=== PATIENT | male | born 1980 | race Caucasian/White ===

== ENCOUNTER 2017-06-11 13:21 | Inpatient (IN) | payer OTHER ==
[~2017-06-11] VITALS: Ht 185.4 cm; Wt 104.2 kg
[~2017-06-11 13:21] MED LIST: AMLODIPINE BESYL5 MG PO; BAL B-1001 EACH PO; COMPAZINE10 MG PO; COREG6.25 M1 PO; CYCLOBENZAPRINE10 MG PO; GABAPENTIN PO; GABAPENTIN300 MG PO; GRALISE600 MG PO; LEVO-T125 MCG PO; LEVO-T150 MCG PO; LISINOPRIL20 MG PO; LISINOPRIL40 MG PO; LOPERAMIDE2 MG PO; LORTAB 10-3251 EACH PO; LYRICA100 MG PO; LYRICA150 MG PO; METOPROLOL SUC100 MG PO; METOPROLOL TAR100 MG PO; METRONIDAZOLE500 MG PO; OXAYDO5 MG PO; PERI-COLACE TA1 EACH PO; PREDNISONE5 MG PO; Protonix PO; TRAZODONE HCL50 MG PO; VITAMIN B-1001 EAC1 PO; VITAMIN B-6250 MG PO
[2017-06-11 14:58] LABS: HEMATOCRIT 41.1 % (38.0-50.0); MCH 28.4 PG (29.0-34.0); MCHC 32.1 G/DL (30.0-36.0); MCV 88.6 FL (86-99); PLATELET COUNT 194 K/uL (156-360); RBC DIS.WIDTH-CV 19.6 % (11.8-14.6); RBC DIS.WIDTH-SD 59.5 % (39-53); RED BLOOD COUNT 4.64 M/uL (4.00-5.50); WHITE BLOOD COUNT 5.9 K/uL (4.1-10.2)
[2017-06-11 15:05] LABS: CHLORIDE 105 mEq/L (99-109); POTASSIUM 4.4 mEq/L (3.7-5.4); SODIUM 140 mEq/L (136-147)
[2017-06-11 15:06] LABS: GLUCOSE 121 mg/dL (70-99)
[2017-06-11 15:08] LABS: ANION GAP 9 MEQ/L (2-14)
[2017-06-11 15:10] LABS: GFR ESTIMATE (CALCULATED) > 59 mL/min/
[2017-06-11 15:11] LABS: UREA NITROGEN (BUN) 11 mg/dL (9-23)
[2017-06-11] MEDS ORDERED: AMOX TR-K CLV1 EAC4 PO (16:38)
[2017-06-11] MEDS ORDERED: DESYREL100 MG PO (16:39)
[2017-06-11] MEDS ORDERED: VITAMIN B12 100MCG PO (16:42)
[2017-06-11 17:53] LABS: Estimated Average Glucose 194 mg/dL (70-123)
[2017-06-11 18:57] LABS: HDL CHOLESTEROL 48 MG/DL (Desirable>=40); LDL CHOLESTEROL 124 mg/dL (Desirable<100); NON-HDL CHOLESTEROL 158 mg/dL (Desirable<160); TOTAL CHOLESTEROL 206 mg/dL (Desirable<200); TRIGLYCERIDES 171 MG/DL (Normal: <150)
[2017-06-11 19:10] LABS: HEMOGLOBIN A1c (GLYCOHEMOGLOB) 8.4 % HGB (Below 5.7)
[2017-06-11 20:06] VITALS: BP 118/71
[2017-06-11 23:40] VITALS: BP 123/58
[2017-06-12 03:24] VITALS: BP 93/52
[2017-06-12 07:07] VITALS: BP 96/55
[2017-06-12 11:08] VITALS: BP 109/71
[2017-06-12 12:30] LABS: POINT-OF-CARE METER ID UU14174225
[2017-06-12 15:05] VITALS: BP 121/79
[2017-06-12 16:52] LABS: POINT-OF-CARE METER ID UU13113717
[2017-06-12 19:26] VITALS: BP 112/66
[2017-06-12 20:12] LABS: POINT-OF-CARE METER ID UU13113717
[2017-06-13 00:28] VITALS: BP 98/60
[2017-06-13 00:49] LABS: POINT-OF-CARE METER ID UU13113717
[2017-06-13 04:03] LABS: POINT-OF-CARE METER ID UU14174225
[2017-06-13 04:04] VITALS: BP 92/62
[2017-06-13 06:59] VITALS: BP 101/67
[2017-06-13 07:44] LABS: POINT-OF-CARE METER ID UU14174225
[2017-06-13 10:55] VITALS: BP 116/67
[2017-06-13] MEDS ORDERED: ASPIR-LOW81 MG PO (11:31)
[2017-06-13] MEDS ORDERED: LIPITOR20 MG PO (11:31)
[2017-06-13] MEDS ORDERED: METFORMIN HCL500 MG PO (11:31)
[2017-06-13 11:59] LABS: POINT-OF-CARE METER ID UU14174225
== END 2017-06-13 15:18 | disposition home or self-care (01) | DRG 65 ==
LOC: EME 13:21 → EDOF 16:00 → 5SOUTH 16:00 → ENRESERV 16:08 → 5SOUTH 19:45 → ENPENDDIS 06-13 → 5SOUTH 06-13 15:18
PROVIDERS: Internal Medicine; Nurse Practitioner Adult Health; Nurse Practitioner Family
DX: I63.322 Cerebral infarction due to thrombosis of left anterior cerebral artery (principal); C18.8 Malignant neoplasm of overlapping sites of colon; C78.7 Secondary malignant neoplasm of liver and intrahepatic bile duct; C79.31 Secondary malignant neoplasm of brain; C78.00 Secondary malignant neoplasm of unspecified lung; E11.9 Type 2 diabetes mellitus without complications; E78.5 Hyperlipidemia, unspecified; G62.0 Drug-induced polyneuropathy; T45.1X5A Adverse effect of antineoplastic and immunosuppressive drugs, initial encounter; I10 Essential (primary) hypertension; K21.9 Gastro-esophageal reflux disease without esophagitis; R47.81 Slurred speech; R29.810 Facial weakness; Z79.84 Long term (current) use of oral hypoglycemic drugs
CPT/HCPCS: 70450; 70553; 71260; 74177; 80048; 80061; 82948; 83036; 85027; 93005; 93306; 93880; 99281; 99285; G0378; J1650; J1815